=== PATIENT | male | born 1995 ===

== ENCOUNTER 2022-02-18 13:29 | Emergency (ER) | payer SELFPAY ==
[2022-02-18 16:44] VITALS: BP 108/71
== END 2022-02-18 22:29 | disposition left against medical advice (07) ==
LOC: ED 13:29
DX: T63.301A Toxic effect of unspecified spider venom, accidental (unintentional), initial encounter (principal); Z53.21 Procedure and treatment not carried out due to patient leaving prior to being seen by health care provider; Y92.89 Other specified places as the place of occurrence of the external cause